=== PATIENT | female | born 1980 | race Caucasian/White ===

== ENCOUNTER 2022-08-14 17:50 | Emergency (ER) | payer OTHER ==
[~2022-08-14] VITALS: Ht 170.2 cm; Wt 59.0 kg
[2022-08-14 18:49] LABS: HEMATOCRIT 26.5 % (31.2-41.9); MEAN CORPUSCULAR HEMOGLOBIN 32.5 uug (24.7-32.8); MEAN CORPUSCULAR VOLUME 95.6 fL (75.5-95.3); PLATELET COUNT (AUTO) 158 K/uL (179-408)
[2022-08-14 18:51] LABS: CARBON DIOXIDE 31 mmol/L (21-32); CHLORIDE 102 mmol/L (98-107); CREATININE 0.8 mg/dL (0.6-1.3); GLUCOSE 100 mg/dL (74-106); POTASSIUM 3.9 mmol/L (3.5-5.1); UREA NITROGEN, BLOOD 8 mg/dL (7-18)
--- NOTE | 2022-08-14 19:02 | NUR ---
Recieved report from Nancy BILLY.
[2022-08-14 19:03] LABS: ALANINE AMINOTRANSFERASE 122 U/L (14-59); ALKALINE PHOSPHATASE 253 U/L (50-136); ASPARTATE AMINOTRANSFERASE 78 U/L (15-37); BILIRUBIN,DIRECT 0.1 mg/dL (0.0-0.2); BILIRUBIN,TOTAL 0.2 mg/dL (0.2-1.0); TOTAL PROTEIN, SERUM 6.1 g/dL (6.4-8.2)
[2022-08-14 20:14] LABS: MAGNESIUM 1.8 mg/dL (1.8-2.4)
[2022-08-14 20:16] LABS: IRON, SERUM 26 ug/dL (50-175)
--- NOTE | 2022-08-14 20:30 | NUR ---
Patient discharged to home in stable condition with caregiver. A/O x3. NAD noted. All belongings with patient and caregiver. Written and verbal after care instructions given. Patient verbalizes understanding of instructions. Stressed follow up or return to ER for worsening s/s.
[2022-08-14 20:37] VITALS: BP 111/64
== END 2022-08-14 20:30 | disposition home or self-care (01) ==
LOC: ER 17:54
DX: R07.89 Other chest pain (principal); F41.9 Anxiety disorder, unspecified; G89.29 Other chronic pain; E03.9 Hypothyroidism, unspecified; Z98.890 Other specified postprocedural states
CPT/HCPCS: 36415; 71045; 83550; 83735; 84484; 85025; 93005; A4663

== ENCOUNTER → 2023-07-20 | Emergency (ER) | payer OTHER ==
[~2023-07-20] VITALS: Ht 165.1 cm; Wt 59.0 kg
[~2023-07-20] MED LIST: ACETAMINOPHEN 325 MG TABLET PO PRN; CLON2TAB PO; HGH SUBCUT; IV NORMAL SALINE 1000 ML BAG IV ONE; IV NS 1000 ML 1,000 ML IV PRN; MAGNESIUM HYDROXIDE 30 ML LIQUID UDC PO PRN; NITROFURANTOIN/NITROFURAN MAC 100 MG CAPSULE PO ONE; ONDANSETRON 4 MG/2 ML VIAL IV PRN; OXYC-132 PO; PANTOPRAZOLE SODIUM 40 MG TABLET.DR PO ONE; PANTOPRAZOLE SODIUM 40 MG TABLET.DR PO SCH; POTASSIUM CHLORIDE 20 MEQ TAB.PRT.SR ONE; POTASSIUM CHLORIDE 20 MEQ TAB.PRT.SR PO ONE; PRAZ5CAP2 PO; REMEDY ESSENTIAL ZINC PASTE 113 GM TP PRN; THYR30TA2 PO; ZOLM5TAB10 PO
[2023-07-20 04:04] LABS: BASOPHILS # (AUTO) 0.1 K/UL (0.0-0.2); BASOPHILS % (AUTO) 0.7 % (0.0-2.0); EOSINOPHILS # (AUTO) 0.1 K/uL (0.0-0.7); EOSINOPHILS % (AUTO) 1.2 % (0.0-7.0); HEMOGLOBIN 9.3 g/dL (10.9-14.3); LYMPHOCYTES # (AUTO) 1.3 K/uL (0.8-4.8); LYMPHOCYTES % (AUTO) 16.5 % (20.5-51.5); MEAN CORPUSCULAR HEMOGLOBIN 31.9 uug (24.7-32.8); MEAN CORPUSCULAR HGB CONC 36 g/dL (32.3-35.6); MEAN CORPUSCULAR VOLUME 89.2 fL (75.5-95.3); MONOCYTES # (AUTO) 0.7 K/uL (0.1-1.30); MONOCYTES % (AUTO) 9.6 % (0.0-11.0); NEUTROPHILS # (AUTO) 5.6 K/uL (1.8-8.9); PLATELET COUNT (AUTO) 256 K/uL (179-408); RED BLOOD CELL COUNT(AUTO) 2.91 MIL/uL (3.63-4.92); RED CELL DISTRIBUTION WIDTH 13.9 % (12.3-17.7); WHITE BLOOD COUNT (AUTO) 7.7 K/uL (3.8-11.8)
[2023-07-20 04:15] LABS: DIFFERENTIAL COMMENT 1
[2023-07-20 04:19] LABS: CALCIUM 8.5 mg/dL (8.5-10.1); CARBON DIOXIDE 27 mmol/L (21-32); CHLORIDE 104 mmol/L (98-107); CREATININE 0.8 mg/dL (0.6-1.3); GLUCOSE 107 mg/dL (74-106); POTASSIUM 3.4 mmol/L (3.5-5.1); SODIUM SERUM 138 mmol/L (136-145); UREA NITROGEN, BLOOD 12 mg/dL (7-18)
[2023-07-20 04:27] LABS: ALANINE AMINOTRANSFERASE 27 U/L (14-59); ALBUMIN 3.2 g/dL (3.4-5.0); ALKALINE PHOSPHATASE 80 U/L (50-136); ASPARTATE AMINOTRANSFERASE 9 U/L (15-37); BILIRUBIN,DIRECT 0.1 mg/dL (0.0-0.2); BILIRUBIN,TOTAL 0.3 mg/dL (0.2-1.0); TOTAL PROTEIN, SERUM 5.7 g/dL (6.4-8.2)
[2023-07-20 04:29] LABS: ACETAMINOPHEN < 2.0 ug/mL (10-30)
[2023-07-20 04:34] LABS: ETHANOL < 3 MG/DL (0-10)
[2023-07-20 06:20] LABS: *BILIRUBIN,URIN NEGATIVE (NEGATIVE); *CLARITY,URINE CLEAR (CLEAR); *COLOR,URINE YELLOW (YELLOW); *KETONES,URINE NEGATIVE (NEGATIVE); *PROTEIN,URINE NEGATIVE (NEGATIVE); *UROBILINOGEN,URINE 0.2 E.U./dl (NORMAL); LEUKOCYTE ESTERASE ,URINE 2+ (NEGATIVE); NITRITE, URINE NEGATIVE (NEGATIVE); PH,URINE 6.5 (5.0-8.0); UGLUCOSE NEGATIVE (NEGATIVE)
[2023-07-20 06:31] LABS: *BLOOD, URINE TRACE (NEGATIVE)
[2023-07-20 06:37] LABS: *AMPHETAMINE, URINE NEGATIVE (NEGATIVE); *BARBITURATE, URINE NEGATIVE (NEGATIVE); *BENZODIAZEPINE, URINE NEGATIVE (NEGATIVE); *CANNABINOID, URINE NEGATIVE (NEGATIVE); *COCCAINE, URINE NEGATIVE (NEGATIVE); *OPIATE, URINE NEGATIVE (NEGATIVE); *PHENCYCLIDINE SCREEN,URINE NEGATIVE (NEGATIVE); FENTANYL, URINE NEGATIVE (NEGATIVE)
[2023-07-20 07:02] LABS: BACTERIA,URINE MODERATE /HPF (NONE SEEN); COARSE GRANULAR CASTS,URINE 0-3 /LPF; SQUAMOUS EPITHELIAL CELL,UR FEW /HPF (NONE SEEN)
[2023-07-20 12:01] VITALS: O2SAT 97
== END | disposition home or self-care (01) ==
LOC: ER 03:30
DX: T44.6X1A Poisoning by alpha-adrenoreceptor antagonists, accidental (unintentional), initial encounter (principal); R07.89 Other chest pain; R10.2 Pelvic and perineal pain; G43.909 Migraine, unspecified, not intractable, without status migrainosus; E03.9 Hypothyroidism, unspecified; Z88.0 Allergy status to penicillin; Z79.899 Other long term (current) drug therapy; Y92.89 Other specified places as the place of occurrence of the external cause
CPT/HCPCS: 80076; 80048; 81001; 82962; 85025; 85730; 84484; 84702; 36415; 93005; 71045; 76856; 99291; 96360; 87040; 80299; 80320; 80307; J7040; A4663; G0480

== ENCOUNTER 2024-07-27 15:23 | Emergency (ER) | payer BC, OTHER ==
[~2024-07-27] VITALS: Ht 165.1 cm; Wt 59.0 kg
[~2024-07-27 15:23] MED LIST changes: -ACETAMINOPHEN 325 MG TABLET PO PRN; -IV NORMAL SALINE 1000 ML BAG IV ONE; -IV NS 1000 ML 1,000 ML IV PRN; -MAGNESIUM HYDROXIDE 30 ML LIQUID UDC PO PRN; -NITROFURANTOIN/NITROFURAN MAC 100 MG CAPSULE PO ONE; -ONDANSETRON 4 MG/2 ML VIAL IV PRN; -OXYC-132 PO; -PANTOPRAZOLE SODIUM 40 MG TABLET.DR PO ONE; -PANTOPRAZOLE SODIUM 40 MG TABLET.DR PO SCH; -POTASSIUM CHLORIDE 20 MEQ TAB.PRT.SR ONE; -POTASSIUM CHLORIDE 20 MEQ TAB.PRT.SR PO ONE; -PRAZ5CAP2 PO; -REMEDY ESSENTIAL ZINC PASTE 113 GM TP PRN
[2024-07-27] MEDS ORDERED: LIDO700A30 TP (15:47)
[2024-07-27] MEDS ORDERED: MELO-107 PO (15:47)
[2024-07-27] MEDS ORDERED: DOXY50TA3 PO (15:47)
[2024-07-27] MEDS ORDERED: GABA300T25 PO (15:47)
[2024-07-27] MEDS ORDERED: CARI350T27 PO (15:47)
[2024-07-27 16:09] LABS: BASOPHILS % (AUTO) 0.5 % (0.0-2.0); EOSINOPHILS # (AUTO) 0.1 K/uL (0.0-0.7); EOSINOPHILS % (AUTO) 1.6 % (0.0-7.0); HEMATOCRIT 37.2 % (31.2-41.9); HEMOGLOBIN 12.4 g/dL (10.9-14.3); LYMPHOCYTES # (AUTO) 1.7 K/uL (0.8-4.8); LYMPHOCYTES % (AUTO) 33.7 % (20.5-51.5); MEAN CORPUSCULAR HEMOGLOBIN 31.3 uug (24.7-32.8); MEAN CORPUSCULAR HGB CONC 33 g/dL (32.3-35.6); MEAN CORPUSCULAR VOLUME 93.7 fL (75.5-95.3); MONOCYTES # (AUTO) 0.4 K/uL (0.1-1.30); MONOCYTES % (AUTO) 8.7 % (0.0-11.0); NEUTROPHILS # (AUTO) 2.8 K/uL (1.8-8.9); NEUTROPHILS % (AUTO) 55.5 % (38.5-71.5); PLATELET COUNT (AUTO) 190 K/uL (179-408); RED BLOOD CELL COUNT(AUTO) 3.97 MIL/uL (3.63-4.92); RED CELL DISTRIBUTION WIDTH 13.1 % (12.3-17.7); WHITE BLOOD COUNT (AUTO) 5.1 K/uL (3.8-11.8)
[2024-07-27 16:14] LABS: DIFFERENTIAL COMMENT 1
[2024-07-27 16:18] LABS: CREATININE 0.8 mg/dL (0.6-1.3); POTASSIUM 3.9 mmol/L (3.5-5.1)
[2024-07-27 16:24] LABS: ALBUMIN 3.9 g/dL (3.4-5.0); BILIRUBIN,TOTAL 0.3 mg/dL (0.2-1.0); TOTAL PROTEIN, SERUM 6.8 g/dL (6.4-8.2)
[2024-07-27 16:24] LABS: *BILIRUBIN,URIN NEGATIVE (NEGATIVE); *CLARITY,URINE CLEAR (CLEAR); *COLOR,URINE YELLOW (YELLOW); *KETONES,URINE NEGATIVE (NEGATIVE); *PROTEIN,URINE NEGATIVE (NEGATIVE); *UROBILINOGEN,URINE 0.2 E.U./dl (NORMAL); LEUKOCYTE ESTERASE ,URINE NEGATIVE (NEGATIVE); NITRITE, URINE NEGATIVE (NEGATIVE); PH,URINE 8.5 (5.0-8.0); UGLUCOSE NEGATIVE (NEGATIVE)
[2024-07-27 16:27] LABS: ACETAMINOPHEN < 2.0 ug/mL (10-30); ETHANOL < 3 MG/DL (0-10)
[2024-07-27 16:30] LABS: *BLOOD, URINE TRACE (NEGATIVE); *URINE HCG, QUAL NEGATIVE (NEGATIVE)
[2024-07-27 16:35] LABS: RBC,URINE 0-3 /HPF (0-3); SQUAMOUS EPITHELIAL CELL,UR FEW /HPF (NONE SEEN); WBC,URINE 0-3 /HPF (0-3)
[2024-07-27 16:36] LABS: BACTERIA,URINE FEW /HPF (NONE SEEN)
[2024-07-27 16:41] LABS: *AMPHETAMINE, URINE NEGATIVE (NEGATIVE); *BARBITURATE, URINE NEGATIVE (NEGATIVE); *BENZODIAZEPINE, URINE NEGATIVE (NEGATIVE); *CANNABINOID, URINE NEGATIVE (NEGATIVE); *COCCAINE, URINE NEGATIVE (NEGATIVE); *OPIATE, URINE NEGATIVE (NEGATIVE); *PHENCYCLIDINE SCREEN,URINE NEGATIVE (NEGATIVE); FENTANYL, URINE NEGATIVE (NEGATIVE)
[2024-07-27 18:56] VITALS: BP 124/68; TEMP 98.3; O2SAT 98
== END 2024-07-27 18:57 | disposition home or self-care (01) ==
LOC: ER 15:24
DX: T42.6X1A Poisoning by other antiepileptic and sedative-hypnotic drugs, accidental (unintentional), initial encounter (principal); G43.909 Migraine, unspecified, not intractable, without status migrainosus; R10.2 Pelvic and perineal pain; E03.9 Hypothyroidism, unspecified; Z98.890 Other specified postprocedural states; Z79.899 Other long term (current) drug therapy; Z88.0 Allergy status to penicillin; Y92.89 Other specified places as the place of occurrence of the external cause
CPT/HCPCS: 80053; 81001; 84703; 85025; 36415; 93005; 99284; 80299; 80320; 80307; J7040; A4606; A4663; G0480

== ENCOUNTER 2024-10-21 17:30 | Emergency (ER) | payer BC ==
[~2024-10-21] VITALS: Ht 165.1 cm; Wt 59.0 kg
[~2024-10-21 17:30] MED LIST changes: +CARI350T27 PO; -CLON2TAB PO; +DOXY50TA3 PO; +GABA300T25 PO; -HGH SUBCUT; +LIDO700A30 TP; +MELO-107 PO; -THYR30TA2 PO; -ZOLM5TAB10 PO
[2024-10-21] MEDS ORDERED: HYDROMORPHONE 2 MG/1 ML DISP.SYRIN ONE ×2 (18:01→20:22)
[2024-10-21] MEDS ORDERED: ONDANSETRON ODT 4 MG TAB.RAPDIS ONE ×2 (18:01→22:57)
[2024-10-21] MEDS: HYDROMORPHONE 1 MG/1 ML DISP.SYRIN IM ONE ×2 (18:06→20:28)
[2024-10-21] MEDS: ONDANSETRON ODT 4 MG TAB.RAPDIS SL ONE ×2 (18:06→22:58)
[2024-10-21 18:17] LABS: BASOPHILS % (AUTO) 0.1 % (0.0-2.0); EOSINOPHILS % (AUTO) 0.4 % (0.0-7.0); HEMATOCRIT 30.8 % (31.2-41.9); HEMOGLOBIN 10.9 g/dL (10.9-14.3); LYMPHOCYTES % (AUTO) 10.4 % (20.5-51.5); MEAN CORPUSCULAR HEMOGLOBIN 32.8 uug (24.7-32.8); MEAN CORPUSCULAR HGB CONC 36 g/dL (32.3-35.6); MEAN CORPUSCULAR VOLUME 92.4 fL (75.5-95.3); MONOCYTES # (AUTO) 0.8 K/uL (0.1-1.30); MONOCYTES % (AUTO) 8.8 % (0.0-11.0); NEUTROPHILS # (AUTO) 7.7 K/uL (1.8-8.9); NEUTROPHILS % (AUTO) 80.3 % (38.5-71.5); PLATELET COUNT (AUTO) 206 K/uL (179-408); RED BLOOD CELL COUNT(AUTO) 3.33 MIL/uL (3.63-4.92); RED CELL DISTRIBUTION WIDTH 13.1 % (12.3-17.7); WHITE BLOOD COUNT (AUTO) 9.6 K/uL (3.8-11.8)
[2024-10-21 18:19] LABS: DIFFERENTIAL COMMENT 1
[2024-10-21 18:30] LABS: ALANINE AMINOTRANSFERASE 16 U/L (14-59); ALBUMIN 4.3 g/dL (3.4-5.0); ALKALINE PHOSPHATASE 65 U/L (50-136); ASPARTATE AMINOTRANSFERASE 9 U/L (15-37); BILIRUBIN,DIRECT 0.1 mg/dL (0.0-0.2); BILIRUBIN,TOTAL 0.5 mg/dL (0.2-1.0); CALCIUM 9.9 mg/dL (8.5-10.1); CARBON DIOXIDE 31 mmol/L (21-32); CHLORIDE 97 mmol/L (98-107); CREATININE 0.9 mg/dL (0.6-1.3); GLUCOSE 109 mg/dL (74-106); POTASSIUM 4.5 mmol/L (3.5-5.1); SODIUM SERUM 135 mmol/L (136-145); TOTAL PROTEIN, SERUM 7.1 g/dL (6.4-8.2); UREA NITROGEN, BLOOD 11 mg/dL (7-18)
[2024-10-21 18:52] LABS: PREGNANCY TEST SERUM QUAN < 1 miul/L (0-6)
[2024-10-21] MEDS ORDERED: ONDA4TAB5 PO (22:14)
[2024-10-21] MEDS ORDERED: OXYC5TAB3 PO (22:14)
[2024-10-21 23:44] VITALS: BP 108/67; TEMP 98.1; O2SAT 100
== END 2024-10-21 23:15 | disposition home or self-care (01) ==
LOC: ER 17:53
DX: S72.092A Other fracture of head and neck of left femur, initial encounter for closed fracture (principal); E03.9 Hypothyroidism, unspecified; R26.2 Difficulty in walking, not elsewhere classified; R10.2 Pelvic and perineal pain; Z79.1 Long term (current) use of non-steroidal anti-inflammatories (NSAID); Z88.0 Allergy status to penicillin; W01.0XXA Fall on same level from slipping, tripping and stumbling without subsequent striking against object, initial encounter; Y93.89 Activity, other specified; Y92.89 Other specified places as the place of occurrence of the external cause; Y99.8 Other external cause status
CPT/HCPCS: 99285; 72192; 80076; 80048; 85025; 84702; 36415; 73502; 96372 ×2; J1171 ×2; A4606; A4663; Q0162